=== PATIENT | male | born 1990 | race Caucasian/White ===

== ENCOUNTER 2016-11-20 04:49 | Inpatient (IN) | payer OTHER ==
[~2016-11-20] VITALS: Ht 180.3 cm; Wt 85.0 kg
[2016-11-20] VITALS (11 sets, daily range): BP systolic 53–86; BP diastolic 32–52
[~2016-11-20 04:49] MED LIST: LOTRIMIN TOP; No Historical Meds
[2016-11-20] MEDS ORDERED: NS 1,000 ML IV ONE (05:00)
[2016-11-20] MEDS ORDERED: NOREPINEPHRINE 4 MG/4 ML AMP As Ordered ONE (05:02)
[2016-11-20] MEDS: NOREPINEPHRINE BITARTRATE 8 MG in D5W 500 ML IV SCH ×2 (05:07→05:10)
[2016-11-20 05:21] LABS: ABG BASE EXCESS -31.4 (-2.0-2.0); ABG PARTIAL PRESSURE O2 211.9 mmHg (75.0-100.0); ABG STANDARD HCO3 4.6 MEQ/L (22.0-26.0); ABG TOTAL CO2 10.6 MEQ/L (22.0-29.0)
[2016-11-20 05:22] LABS: ABG PARTIAL PRESSURE CO2 83.4 mmHg (35.0-45.0); ABG pH (ARTERIAL) 6.602 UNITS (7.350-7.450)
[2016-11-20 05:37] LABS: ADD MANUAL DIFFER YES; MEAN CORPUSCULAR HEMOGLOBIN 30.8 pg (27.0-33.0); MEAN CORPUSCULAR VOLUME 102.6 fl (80.0-96.0); PLATELET COUNT, AUTOMATED 247 k/mm3 (150-450); RED CELL DISTRIBUTION WIDTH 12.1 % (11.5-14.5); WHITE BLOOD COUNT 13.3 K/mm3 (4.0-10.0)
[2016-11-20] MEDS ORDERED: DEXTROSE 50% 50 ML SYRINGE IV STA (05:44)
[2016-11-20 05:45] LABS: ALBUMIN 4.1 GM/DL (3.2-5.2); ALBUMIN/GLOBULIN RATIO 1.08 (1.00-1.93); ALKALINE PHOSPHATASE 111 U/L (45-117); ANION GAP 32 MEQ/L (8-16); BILIRUBIN,DIRECT 0.3 MG/DL (0.0-0.2); BILIRUBIN,TOTAL 1.1 MG/DL (0.2-1.0); BLOOD UREA NITROGEN 17 MG/DL (7-18); CARBON DIOXIDE LEVEL 13 MEQ/L (21-32); CHLORIDE LEVEL 97 MEQ/L (98-107); CREATININE FOR GFR 2.44 MG/DL (0.70-1.30); GLOMERULAR FILTRATION RATE 34.9 (>60); GLUCOSE, FASTING 70 MG/DL (70-105); SODIUM LEVEL 142 MEQ/L (136-145); TOTAL PROTEIN 7.9 GM/DL (6.4-8.2)
[2016-11-20] MEDS ORDERED: DEXTROSE 50% 50 ML SYRINGE As Ordered ONE (05:45)
--- NOTE | 2016-11-20 05:50 | REPUSA ---
CLINICAL HISTORY: Drug overdose. TECHNIQUE: Multiple axial brain CT scan sections were obtained from base to vertex without contrast a dministration. COMMENTS: Moderate diffuse brain edema and effacement of the sulci. The study shows normal configuration of sella turcica. There are no intra or extra-axial collections. There is no mass effect or midline shift. There is no evidence of hematoma formation. No hydrocephal us is present. No abnormal calcifications are noted. The sinuses and mastoid air cells are patent. IMPRESSION: Moderate diffuse brain edema with effacement of the sulci. Thank you for your kind referral of this patient.
[2016-11-20 05:56] LABS: POTASSIUM SERUM 6.9 MEQ/L (3.5-5.1)
[2016-11-20 06:14] LABS: ALT/SGPT 6373 U/L (12-78); AST/SGOT 6345 U/L (15-37)
[2016-11-20] MEDS ORDERED: NS IV ONE (06:15)
[2016-11-20] MEDS ORDERED: DILUENT IV ONE (06:15)
[2016-11-20 06:41] LABS: ABG HCO3 10.8 MEQ/L (22.0-26.0); ABG PARTIAL PRESSURE CO2 54.7 mmHg (35.0-45.0); ABG PARTIAL PRESSURE O2 182.8 mmHg (75.0-100.0); ABG STANDARD HCO3 8.9 MEQ/L (22.0-26.0); ABG TOTAL CO2 12.5 MEQ/L (22.0-29.0)
[2016-11-20 06:44] LABS: ABG pH (ARTERIAL) 6.914 UNITS (7.350-7.450)
[2016-11-20 06:53] LABS: ANISOCYTOSIS 1+; EOSINOPHILS 1 % (0-5); POIKILOCYTOSIS 1+
[2016-11-20] MEDS ORDERED: NOREPINEPHRINE BITARTRATE 8 MG in D5W 500 ML IV SCH (07:03)
[2016-11-20 07:14] LABS: INR 1.84
[2016-11-20] MEDS ORDERED: MIDAZOLAM INJ 2 MG/2 ML VIAL (J2250) IV PRN (07:15)
[2016-11-20 07:37] LABS: ALBUMIN 2.9 GM/DL (3.2-5.2); ALBUMIN/GLOBULIN RATIO 1.04 (1.00-1.93); BILIRUBIN,TOTAL 0.8 MG/DL (0.2-1.0); CREATININE FOR GFR 2.37 MG/DL (0.70-1.30); GLOMERULAR FILTRATION RATE 36.1 (>60); TOTAL PROTEIN 5.7 GM/DL (6.4-8.2)
[2016-11-20] MEDS: IPRATROPIUM 0.5MG/ALBUTEROL 2.5MG INH SOL UD 3ML (DUONEB)(J7620) NEB SCH ×2 (08:00→11:21)
--- NOTE | 2016-11-20 08:10 | RO ---
DATE OF PROCEDURE: 11/20/2016 PREPROCEDURE DIAGNOSIS: Hypotension. POSTPROCEDURE DIAGNOSIS: Hypotension. PROCEDURE: Left internal jugular venous catheter placement. SURGEON: Ruben Cristobal DO HRIS DEVELOPER: None ANESTHESIA: Comatose I obtained verbal consent from the parents as this was deemed urgent as he was hypotensive requiring vasopressor therapy. No sedation, patient is in a coma on mechanical ventilation, 1% lidocaine use. DESCRIPTION OF PROCEDURE: Patient was placed in the supine position. The left internal jugular (IJ) was prepped and draped in a sterile manner with chlorhexidine and full barrier sterile precautions. Time-out was performed identifying two patient identifiers, correct site, correct procedure. The left IJ was then ultrasound. The Linda syringe was passed into the vein on the first pass with return of venous blood flow. Wire was fed through the needle and the needle was removed. Triple-lumen catheter then was placed via modified Seldinger technique. All ports returned venous blood flow and flushed easily. This was sutured in at 15 cm and sterile dressing was placed over the site. Post chest x-ray shows adequate placement without evidence of pneumothorax. No observed complications. [facility]
--- NOTE | 2016-11-20 08:31 | REP ---
Portable chest x-ray: Single view. History: Central line placement. Comparison study: November 20, 2016, 05:08 a.m. film. Findings: The endotracheal tube has been withdrawn into good position, 2 cm above the anthony. Nasogastric tube is seen entering the left upper quadrant of the abdomen. There is a large infiltrate in the left upper lobe which has increased since the earlier film. This may relate to the low endotracheal tube position seen on the earlier film with atelectasis and/or edema in the left upper lobe. There are air bronchograms associated with this. There is no evidence of pneumothorax. A left internal jugular central venous line has been passed with its tip in the midline in the expected location of the brachiocephalic vein. The right lung remains clear. EKG electrodes are seen. Impression: Endotracheal tube in good position now. Left subclavian line in place along with NG tube. Large area of infiltrate and/or edema affecting the left upper lobe. Signed by Steve Granados MD 11/20/2016 08:37 A
--- NOTE | 2016-11-20 08:39 | REP ---
Portable chest x-ray: Two views. These are time stamped 05:08 a.m. and 05:11 a.m.. History: Drug overdose. Comparison study: November 20, 2014. Findings: The initial film time stamped 05:08 a.m. demonstrates a right mainstem intubation with the endotracheal tube. There is hazy opacity in the left upper lobe associated with this and some volume loss in the left hemithorax. The right lung is clear. Film time stamped 05:11 a.m. demonstrates the endotracheal tube in good position. Some hazy opacification persists in the left upper lobe distribution. EKG electrodes are seen. Lungs are otherwise clear. Impression: Initial film demonstrates right mainstem bronchial intubation with under inflation and hazy opacity in the left upper lobe. Follow-up film demonstrates good endotracheal tube position and improved aeration. Signed by Steve Granados MD 11/20/2016 09:54 A
[2016-11-20] MEDS ORDERED: levETIRAcetam INJection 500 MG in D5W MINI-BAG PLUS 100 ML IV ONE (08:45)
[2016-11-20] MEDS ORDERED: SODIUM BICARBONATE 8.4% INJ 50 ML SYRINGE IV STA (08:50)
[2016-11-20] MEDS ORDERED: CHLORHEXIDINE GLUCONATE 0.12 % 15ML UDC (PERIDEX ORAL RINSE) MT SCH (09:00)
[2016-11-20] MEDS ORDERED: PANTOPRAZOLE 40MG INJ (PROTONIX) (C9113) IV SCH (09:00)
[2016-11-20] MEDS ORDERED: CALCIUM GLUCONATE 1,000 MG in D5W MINI-BAG PLUS 100 ML IV ONE (09:00)
[2016-11-20] MEDS ORDERED: ALBUTEROL 90 MCG/ACT 8GM HFA INHALER INH ONE (09:00)
[2016-11-20] MEDS ORDERED: ENOXAPARIN 40 MG/0.4 ML SYRINGE (J1650) SC SCH (09:00)
[2016-11-20] MEDS ORDERED: HumaLOG INSULIN (NovoLOG) PER UNIT SC STA (09:20)
[2016-11-20] MEDS ORDERED: DEXTROSE 50% 50 ML VIAL IV ONE (09:30)
[2016-11-20] MEDS ORDERED: LORazepam 2 MG/ML VIAL (J2060) IV PRN (09:30)
[2016-11-20] MEDS ORDERED: PHENYTOIN INJection 1,000 MG in NS 100 ML IV ONE (10:00)
[2016-11-20] MEDS ORDERED: levETIRAcetam INJection 1,000 MG in D5W 100 ML IV ONE (10:00)
--- NOTE | 2016-11-20 10:17 | HPE ---
DATE OF ADMISSION: 11/20/2016 Critical care time was 1 hour and 9 minutes. This excludes all procedures. HISTORY OF PRESENT ILLNESS: Paul is a 26-year-old male who was on leave from rehabilitation for a weekend with his family. He was last seen awake at midnight playing video games. He was then found down at 4:00 a.m. in the bathroom with needles next to him. He was unresponsive. Emergency medical services (EMS) was called. On arrival, he was and cardiopulmonary arrest, pulseless electrical activity (PEA). He was given 12 mg of Narcan and 1 mg of epinephrine during cardiopulmonary resuscitation. He was then intubated. He had spontaneous return of circulation prior to his arrival to the emergency room (ER). On arrival to the ER, it was found that he had a right mainstem intubation. The endotracheal tube was moved back. Since his arrival to the ER, he has had no arousal, he has had no significant urine output. He was found to be severely acidotic with a pH of 6.6 and lactate of 24. Head CT showed diffuse brain edema with effacement of sulci. Family in the room to provide some history. Mother and father at bedside along with sister. States he has no significant medical history other than nephrolithiasis and a history of spontaneous pneumothorax. No other further medical information is obtainable. He does have a history of significant heroin use. PAST MEDICAL HISTORY: 1. Nephrolithiasis. 2. History of inguinal hernia repair as a child. 3. Spontaneous pneumothorax 2011. ALLERGIES: No known drug allergies. MEDICATIONS: No known medications. FAMILY HISTORY: Unobtainable. SOCIAL HISTORY: The patient was a smoker, apparently in rehab for illicit drug use - heroin mostly. No other social history can be obtained at this point in time. REVIEW OF SYSTEMS: Not obtainable. PHYSICAL EXAMINATION: Temperature on arrival was 96.3, pulse is 60, respiratory rate is 14, blood pressure is now 113/55 with 60 mg of Levophed. Oxygen saturation is 98% on 0.35 FiO2. General: The patient is unresponsive on mechanical ventilation. HEENT: Sclerae are clear. Pupils are fixed and dilated. No response to light. No corneal reflex. No oculocephalic reflex. Poor dentition. Tongue is midline without evidence of trauma. Endotracheal tube, orogastric (OG) tube is in place. Neck is supple. No tracheal deviation. No elevated jugular venous pressure (JVP). No carotid bruits. Pulmonary: Clear to auscultation without rales, rhonchi, wheezes. No dullness to percussion. No accessory muscle use. Cardiac: Regular, S1, S2 without audible murmur, rub or gallop. No elevated JVP. No peripheral edema. Abdomen: Currently no active bowel sounds. No discernible hepatosplenomegaly. No masses or hernia. Extremities: No cyanosis, clubbing or edema. He does have an IO in the left lower extremity. No clubbing or cyanosis. Skin: No rash, jaundice, bruising. Small excoriation over the left foot. Musculoskeletal: No obvious fracture or joint effusion. Neurologic: Neurologic exam as mentioned above. He occasionally has a myoclonic jerk, no posturing. Pupillary, oculocephalic and corneal reflexes as mentioned above. There is no evidence of seizure activity. Deep tendon reflexes (DTRs) are currently diffusely hyporesponsive. Laboratory evaluation shows a head CT with diffuse brain edema with effacement of sulci. No evidence of hemorrhage. Chest x-ray shows on initial right mainstem intubation; however, the 5:11 chest x-ray shows the endotracheal tube in good position. Chest x-ray performed after central line placement shows adequate central line placement. No evidence of pneumothorax. There is some increased edema on the left on most recent chest x-ray. White blood cell count is 13.3, hemoglobin 14.8, hematocrit is 52.6, platelet count of 247. Sodium is 142, potassium 6.9, chloride is 97, bicarbonate is 13, anion gap is 32. Lactate is 24. CK is 7069. BUN is 17, creatinine is 2.44. Arterial blood gas shows a pH of 6.6, pCO2 of 83 and pAO2 of 211, glucose is 70, total bilirubin is 1.1. AST is 6345, ALT is 6373. CK is elevated at 7069. IMPRESSION: 1. Cardiopulmonary arrest, pulseless electrical activity (PEA) arrest secondary to drug overdose. The patient remains hypotensive. No significant arrhythmia at this point in time. 2. Respiratory failure, currently on mechanical ventilation. Will recheck arterial blood gas (ABG). 3. Renal failure and no urine output, likely secondary to acute arrest. 4. Hyperkalemia, likely secondary to acidemia. Will recheck chemistry now. 5. Lactic acidosis, severe in nature, supporting was IV fluids and Levophed. 6. Hypothermia. Will place a warming blanket. 7. Gastrointestinal (GI) prophylaxis with Protonix. 8. Deep vein thrombosis (DVT) prophylaxis with Lovenox. 9. Diffuse brain edema with effacement of sulci/coma, likely secondary to anoxic brain injury; however, too early to tell. Will continue to monitor for clinical improvement. Will also monitor for the possibility of seizure activity. Critical care time is 1 hour and 9 minutes, as mentioned above. This excludes all procedures. MTDD
[2016-11-20] MEDS ORDERED: VASOPRESSIN INJ 20 UNITS/ML VIAL As Ordered ONE (10:25)
[2016-11-20] MEDS ORDERED: VASOPRESSIN INJ 20 UNITS in NS 500 ML IV SCH (10:30)
[2016-11-20] MEDS ORDERED: LIDOCAINE W/EPINEPHRINE 1% 20ML VIAL As Ordered ONE (10:34)
--- NOTE | 2016-11-20 10:55 | RO ---
DATE OF PROCEDURE: 11/20/2016 I was called urgently to the patient's bedside in the emergency room for hemoptysis. PREOPERATIVE DIAGNOSIS: Hemoptysis. POSTPROCEDURE DIAGNOSIS: Hemoptysis. PROCEDURE: Bronchoscopy SURGEON: Dr. Ruben Cristobal USER EXPERIENCE RESEARCHER: None. ANESTHESIA: Sedation: Patient sedated on mechanical ventilation. DESCRIPTION OF PROCEDURE: The patient had obvious bleeding through his nares, pooling of blood in his mouth. However, no blood from the oralgastric (OG) tube , no blood from the endotracheal tube. I passed the bronchoscope down into the airway. There was no significant bleeding. However, the endotracheal tube was touching the anthony. Therefore, the endotracheal tube was moved back. When the balloon was deflated, there was evidence of blood tracking down the airway from above the cords. The airways were all suctioned, endotracheal tube was moved back and all airways were cleared of secretions. The mouth was then viewed with the scope. There was some pooling of blood from above. I did not perform nasal endoscopy due to his brain edema and the possibility of increasing intracranial pressure. After suctioning all the airways, ensuring adequate mucus and blood clearance, the bronchoscope was removed. There were no observed complications. KIMMY
[2016-11-20] MEDS ORDERED: EPINEPHrine HCL INJ 1 MG in D5W 240 ML IV STA (11:19)
[2016-11-20] MEDS ORDERED: EPINEPHrine HCL INJ 1 MG in D5W 240 ML IV SCH (11:30)
[2016-11-20 11:41] LABS: MEAN CORPUSCULAR HEMOGLOBIN 30.3 pg (27.0-33.0); MEAN CORPUSCULAR HGB CONC 33.2 g/dl (32.0-36.5); RED CELL DISTRIBUTION WIDTH 12.4 % (11.5-14.5); WHITE BLOOD COUNT 8.8 K/mm3 (4.0-10.0)
[2016-11-20 11:45] LABS: MEAN CORPUSCULAR VOLUME 91.1 fl (80.0-96.0)
[2016-11-20 11:57] LABS: CREATININE FOR GFR 2.75 MG/DL (0.70-1.30); GLOMERULAR FILTRATION RATE 30.4 (>60)
[2016-11-20 12:00] LABS: POTASSIUM SERUM 5.3 MEQ/L (3.5-5.1)
--- NOTE | 2016-11-20 12:35 | CCN ---
DATE: 11/20/2016 I was urgently called to the patient's bedside for hemorrhage in the mouth and nose. Patient remains severely acidemic. pH has now come up to 6.9. Critical care time was an additional 2 hours and 11 minutes, and this is in addition to the 1 hour 9 minutes this morning. On my arrival, the patient was actively seizing. He again continues to have no responsiveness. I had given Versed, Ativan and loaded with Keppra. I performed two consults, first to neurosurgery and then to neurology. Neurosurgery is in the room currently placing an intracranial pressure monitor. After I have given the patient fresh frozen plasma (FFP) as he is likely in disseminated intravascular coagulation (DIC) from the acidemia. I performed bronchoscopy. There was no blood coming from the endotracheal tube or from the orogastric (OG) tube. It appears that this is a posterior nasopharyngeal bleed. I did not place any nasal packing as this will likely increase his intracranial pressure. His new labs also show worsening hyperkalemia with a potassium of 7. I gave D50, insulin, albuterol at bedside. I also gave bicarb to correct his acidemia as this is the likely precipitating factor for his hyperkalemia. He became significantly more hypotensive on Levophed. I added vasopressin as this traditionally works better in acidemia. He is currently in status based on neurology's helpful recommendations. I have added another 1000 of Keppra after my first 500 and this should be starting dose of Dilantin. Despite therapy, patient remains seizing, although his seizure activity has decreased in intensity. He remains in status. Intracranial pressure monitor was placed with initial pressure of 75. IMPRESSION: 1. Severe brain injury with status consulting neurology, neurosurgery. Greatly appreciate their input. 2. Hemorrhage likely from DIC. FFP ordered. INR was up to 1.8. Will continue to monitor CBC for need for transfusion. At this point in time, will not perform any nasal packing in order to prevent increased intracranial pressure. 3. Hyperkalemia. Treated as above. Will recheck chemistry panel. 4. Severe hypotension. Vasopressin added. Will continue to monitor for adequate mean arterial pressure, cerebral perfusion pressure. 5. Brain edema. At this point in time, the patient may not be a candidate for mannitol as we are having trouble with blood pressure. As soon as blood pressure perfusion is adequately maintained, may consider mannitol. However, he is in renal failure. Hypertonic saline may acutely lower his ICP. However, the effect is usually short-term and long-term clinical outcomes remain unclear. Right now he is too hypotensive for Lasix, and glucocorticoids are associated with worse outcome. He is being hyperventilated, although this did not significantly change intracranial pressure. However, because of his acidemia, he is being hyperventilated. He is also hypothermic. I am partially rewarming him because of his difficulty with blood coagulation. However, keeping him semi cool for neurologic recovery. Goal temperature of 96. Patient remains critically ill, extremely poor prognosis. I do not believe he will survive this hospitalization.
[2016-11-20] MEDS ORDERED: PHENYTOIN INJ 250 MG/5 ML VIAL (J1165) IV SCH (16:00)
--- NOTE | 2016-11-20 16:37 | DSES ---
DATE OF ADMISSION: 11/20/2016 DATE OF DISCHARGE: 11/20/2016 HOSPITALIZATION: Paul was a 26-year-old male found down in pulseless electrical activity (PEA) arrest, spontaneous return of circulation after epinephrine; however, remained hypotensive. He was severely acidotic with a pH of 6.1. Acidosis improved to 6.9 with bicarbonate and then up to three pressors. However, despite over maximum dose of Levophed, vasopressin and high-dose epinephrine, he was unable to maintain a significant blood pressure. He started to have signs/symptoms of disseminated intravascular coagulation (DIC), oozing of blood from all venous sites in all prior sites of injury. As part of his hospital stay, he did have an intracranial pressure monitor placed after diffuse brain swelling was seen on CT, which had an intracranial pressure of 75. From the time of his admission up until the time when he started having status epilepticus, he had no pupillary response, no corneal reflex, and no oculocephalic reflex. He had no response to pain. No myoclonus and no posturing. Despite our best efforts, the patient's family stated that because of prognosis was grim he would not want to live this by and they withdrew care. I contacted organ donation and the diagnostic medical sonographer's office. The diagnostic medical sonographer stated there will be an autopsy performed. The cause of is noted to be determined by diagnostic medical sonographer; however, there is suspicion of heroin overdose given his prior history use and being found down with needles. DISCHARGE DIAGNOSES: 1. Respiratory failure. 2. Cardiopulmonary arrest with pulseless electrical activity (PEA). 3. Anoxic brain injury. 4. Coma. 5. Hyperkalemia. 6. Lactic acidosis. 7. Severe persistent hypotension. 8. Hypothermia. 9. Coagulation disorder, likely disseminated intravascular coagulation (DIC). 10. Probable acute toxicity. 11. Acute blood loss with hemorrhage from multiple sights including right nares. 12. Renal failure. 13. Acute liver injury. 14. Multiorgan system failure.
--- NOTE | 2016-11-20 19:37 | ECGEPIP ---
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
[2016-11-20] MEDS ORDERED: levETIRAcetam INJection 500 MG in D5W MINI-BAG PLUS 100 ML IV SCH (21:00)
[2016-11-20] MEDS ORDERED: levETIRAcetam INJection 1,500 MG in D5W 100 ML IV SCH (21:00)
--- NOTE | 2016-11-21 14:09 | RO ---
DATE OF PROCEDURE: 11/20/2016 PREPROCEDURE DIAGNOSIS: Coma with massive brain swelling. POSTPROCEDURE DIAGNOSIS: Coma with massive brain swelling. PROCEDURE: Right frontal ventriculostomy and placement of intracranial pressure (ICP) monitoring device. SURGEON: Dr. Jan Sanchez KOSHER BUTCHER: ANESTHESIA: FINDINGS: The patient was seen in the emergency room with rapid onset of coma from intravenous (IV) heroin overdose. In the emergency room, the patient had some seizure activity; otherwise he had no movement to pain, pupils were fixed and dilated. There were no extraocular movements. Since arrival in the emergency room, he had no spontaneous respirations. The patient had been intubated and had Versed and Ativan before intubation. The CT scan showed massive brain swelling with slit ventricles. Grave outlook was discussed with the patient's family. 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 The patient's family wished to proceed with close neurologic monitoring, including monitoring of intracranial pressure. The surgery was performed in the intensive care unit (ICU) with the assistance of operating room staff. DESCRIPTION OF PROCEDURE: The area of surgery was prepped and draped in the usual sterile fashion. Using a PlasmaBlade, a stab incision was given at the coronal suture about 3 cm from the midline, using Sherman drill bit a trephination was carried out, brain expressed out in a violent fashion and using Sherman ventriculostomy catheter, right frontal ventriculostomy was performed. About 15 mL of cerebrospinal fluid (CSF) gushed out of the ventricular catheter and after draining this fluid, the opening pressure was still 80 cm with good waveform. The intracranial monitoring device was then placed into the ventricular system and wound closed with two stitches and Dermabond. Operative findings were discussed with the patient's family and once again, grave outlook was discussed with them. KIMMY
== END 2016-11-20 12:34 | disposition expired | DRG 951 ==
LOC: EDBD 04:49 → M ED 06:06 → M ED INP 07:03 → M ICU 10:08
PROVIDERS: ADMIT Internal Medicine Pulmonary Disease; ATTEND Internal Medicine Pulmonary Disease
PROC: 009600Z Drainage of Cerebral Ventricle with Drainage Device, Open Approach (ICD-10-PCS; principal; 2016-11-20)
PROC: 4A1 Measurement and Monitoring, Physiological Systems, Monitoring (ICD-10-PCS; 2016-11-20)
PROC: 5A1935Z Respiratory Ventilation, Less than 24 Consecutive Hours (ICD-10-PCS; 2016-11-20)
PROC: 05H433Z Insertion of Infusion Device into Left Innominate Vein, Percutaneous Approach (ICD-10-PCS; 2016-11-20)
PROC: 0B9 Respiratory System, Drainage (ICD-10-PCS; 2016-11-20)
DX: T40.1X1A Poisoning by heroin, accidental (unintentional), initial encounter (principal); I46.8 Cardiac arrest due to other underlying condition; G93.6 Cerebral edema; D65 Disseminated intravascular coagulation [defibrination syndrome]; J96.00 Acute respiratory failure, unspecified whether with hypoxia or hypercapnia; R40.20 Unspecified coma; S36.119A Unspecified injury of liver, initial encounter; I95.9 Hypotension, unspecified; E87.2 Acidosis; N17.9 Acute kidney failure, unspecified; E87.5 Hyperkalemia; D62 Acute posthemorrhagic anemia; R68.0 Hypothermia, not associated with low environmental temperature; F17.200 Nicotine dependence, unspecified, uncomplicated; Y92.012 Bathroom of single-family (private) house as the place of occurrence of the external cause; Y93.89 Activity, other specified

== ENCOUNTER → 2016-11-22 | Outpatient (REF) | LOC: M LAB 09:36 ==